=== PATIENT | female | born 1990 | race Caucasian/White ===

== ENCOUNTER 2017-04-06 12:23 | Emergency (ER) | payer OTHER ==
[~2017-04-06] VITALS: Ht 160 cm; Wt 68.9 kg
[2017-04-06] MEDS ORDERED: PEN-VEE K,VEET500 MG PO (13:38)
[2017-04-06 13:50] VITALS: BP 00/00
== END 2017-04-06 13:53 | disposition home or self-care (01) ==
LOC: EME 12:23
DX: K08.89 Other specified disorders of teeth and supporting structures (principal); F17.200 Nicotine dependence, unspecified, uncomplicated
CPT/HCPCS: 99281; 99284